=== PATIENT | female | born 1990 | race African-American/Black ===

== ENCOUNTER 2017-02-25 18:39 | Inpatient (IN) | payer OTHER ==
[~2017-02-25] VITALS: Ht 149.9 cm; Wt 45.3 kg
[2017-02-25] MEDS ORDERED: POTASSIUM PO (19:01)
[2017-02-25] MEDS ORDERED: ONDA4 PO (19:02)
[2017-02-25] MEDS ORDERED: KETOROLAC TROMETHAMINE 30 MG/ML VIAL IVP ONE (19:15)
[2017-02-25] MEDS ORDERED: ONDANSETRON HCL 4 MG/2 ML VIAL IVP ONE ×2 (19:15→21:15)
[2017-02-25] MEDS ORDERED: KETOROLAC TROMETHAMINE 15 MG/ML VIAL IV ONE (19:15)
[2017-02-25] MEDS ORDERED: SODIUM CHLORIDE 0.9% 1,000 ML IV ONE ×2 (19:15→23:00)
[2017-02-25] MEDS ORDERED: HYDROmorphone 2 MG/ML SYRINGE IVP ONE ×2 (19:15→21:15)
[2017-02-25 19:46] LABS: BASOPHILS % (AUTO) 0.4 % (0.0-2.0); EOSINOPHILS % (AUTO) 0.5 % (1.0-6.0); HEMATOCRIT 33.3 % (36-46); HEMOGLOBIN 11.4 g/dL (12.0-16.0); LYMPHOCYTES # (AUTO) 2.7 K/uL (1.0-4.8); LYMPHOCYTES % (AUTO) 46.1 % (22.0-44.0); MEAN CORPUSCULAR HEMOGLOBIN 33.5 pg (26.0-34.0); MEAN CORPUSCULAR HGB CONC 34.1 G/dL (31.0-37.0); MEAN CORPUSCULAR VOLUME 98 fL (80-100); MONOCYTES # (AUTO) 0.5 K/uL (0.1-1.0); NEUTROPHILS # (AUTO) 2.6 K/uL (1.8-7.7); PLATELET COUNT (AUTO) 288 K/uL (150-450); RED BLOOD CELL COUNT(AUTO) 3.39 MIL/uL (4.00-5.20); RED CELL DISTRIBUTION WIDTH 15.7 % (11.5-14.5); WHITE BLOOD COUNT (AUTO) 5.9 K/uL (4.5-11.0)
[2017-02-25 20:11] LABS: ALANINE AMINOTRANSFERASE 37 U/L (12-78); ALBUMIN 2.8 g/dL (3.4-5.0); ANION GAP 8 mmol/L (8-16); ASPARTATE AMINOTRANSFERASE 36 U/L (15-37); BILIRUBIN,TOTAL 0.6 mg/dL (0.1-1.0); CALCIUM, TOTAL 8.7 mg/dL (8.8-10.5); CARBON DIOXIDE 30 mmol/L (22-29); CHLORIDE 98 mmol/L (98-107); CREATININE 0.55 mg/dL (0.60-1.30); GLOMERULAR FILTR. RATE CALC > 60 mL/min (>60); SODIUM SERUM 136 mmol/L (136-145); TOTAL PROTEIN, SERUM 5.8 g/dL (6.4-8.2); UREA NITROGEN, BLOOD 10 mg/dL (7-18)
[2017-02-25 20:18] LABS: POTASSIUM 2.5 mmol/L (3.5-5.1)
[2017-02-25] MEDS ORDERED: POTASSIUM CHLORIDE 10% 40 MEQ/30 ML LIQUID UDCUP PO ONE (21:00)
[2017-02-25] MEDS ORDERED: POTASSIUM CHL 10 MEQ/WATER 50 ML IV ONE (21:15)
[2017-02-25] MEDS ORDERED: SODIUM CHLORIDE 0.9% 500 ML IV ONE (21:17)
[2017-02-25] MEDS ORDERED: MAGNESIUM HYDROXIDE SUSPENSION 30 ML UDCUP PO PRN (23:00)
[2017-02-25] MEDS ORDERED: ONDANSETRON HCL 4 MG/2 ML VIAL IVP PRN (23:00)
[2017-02-25] MEDS ORDERED: ACETAMINOPHEN 325 MG TABLET PO PRN (23:00)
[2017-02-25] MEDS ORDERED: DiphenhydrAMINE HCL 25 MG CAPSULE PO PRN (23:00)
[2017-02-25] MEDS ORDERED: POTASSIUM CHLORIDE 20 MEQ ER TABLET PO PRN (23:00)
[2017-02-25] MEDS: POTASSIUM CHL 10 MEQ/WATER 50 ML IV PRN (23:05)
[2017-02-25 23:25] VITALS: BP 132/97
[2017-02-25] MEDS: MORPHINE SULFATE 2 MG/ML SYRINGE IVP PRN (23:37)
[2017-02-26] MEDS: POTASSIUM CHL 10 MEQ/WATER 50 ML IV PRN ×5 (00:57→12:47)
[2017-02-26 04:07] VITALS: BP 150/100
[2017-02-26] MEDS: OxyCODONE HCL/ACETAMINOPHEN 5-325 MG TABLET PO PRN (04:12)
[2017-02-26 06:17] LABS: APPEARANCE,URINE TURBID (CLEAR); GLUCOSE, URINE (UA) NEGATIVE (NEGATIVE); KETONES,URINE 15 mg/dL (NEGATIVE); LEUKOCYTE ESTERASE ,URINE SMALL (NEGATIVE); OCCULT BLOOD,URINE NEGATIVE (NEGATIVE); PH,URINE 6.5 (5.0-8.0); PROTEIN,URINE POS 1+ (NEGATIVE)
[2017-02-26 06:28] LABS: SQUAMOUS EPITHELIAL CELL,UR Moderate /LPF (None Seen)
[2017-02-26 07:34] VITALS: BP 129/79
[2017-02-26] MEDS: DOCUSATE SODIUM 100 MG CAPSULE PO SCH ×2 (07:56→19:39)
[2017-02-26] MEDS: PANTOPRAZOLE SODIUM 40 MG/VIAL IVP SCH (07:56)
[2017-02-26] MEDS: MORPHINE SULFATE 2 MG/ML SYRINGE IVP PRN ×2 (11:59→19:40)
[2017-02-26 13:10] VITALS: BP 121/85
[2017-02-26] MEDS ORDERED: DEXTROSE 5%-0.45% SODIUM CHL 1,000 ML IV ONE (13:30)
[2017-02-26 19:27] VITALS: BP 126/87
[2017-02-26 19:35] LABS: APPEARANCE,URINE TURBID (CLEAR); GLUCOSE, URINE (UA) NEGATIVE (NEGATIVE); KETONES,URINE TRACE mg/dL (NEGATIVE); LEUKOCYTE ESTERASE ,URINE TRACE (NEGATIVE); OCCULT BLOOD,URINE NEGATIVE (NEGATIVE); PH,URINE 6.5 (5.0-8.0); PROTEIN,URINE POS 1+ (NEGATIVE)
[2017-02-26 19:46] LABS: ADD UA MICROSCOPIC YES
[2017-02-26 19:47] LABS: AMORPHOUS SEDIMENT,UR Many /LPF (None Seen); RBC,URINE None Seen /HPF (0-2); WBC,URINE 0-2 /HPF (0-5)
[2017-02-26 23:52] VITALS: BP 151/107
[2017-02-27] MEDS: MORPHINE SULFATE 2 MG/ML SYRINGE IVP PRN ×3 (01:39→20:04)
[2017-02-27 04:22] VITALS: BP 129/88
[2017-02-27] MEDS: OxyCODONE HCL/ACETAMINOPHEN 5-325 MG TABLET PO PRN (04:32)
[2017-02-27 07:10] VITALS: BP 124/87
[2017-02-27] MEDS: PANTOPRAZOLE SODIUM 40 MG/VIAL IVP SCH (08:13)
[2017-02-27] MEDS: DOCUSATE SODIUM 100 MG CAPSULE PO SCH ×2 (08:13→19:59)
[2017-02-27] MEDS ORDERED: SODIUM CHLORIDE 0.9% 1,000 ML IV ONE ×2 (10:29→11:15)
[2017-02-27 15:20] VITALS: BP 131/93
[2017-02-27 19:22] VITALS: BP 111/76
[2017-02-28 00:38] VITALS: BP 121/78
[2017-02-28] MEDS: MORPHINE SULFATE 2 MG/ML SYRINGE IVP PRN ×2 (03:16→10:38)
[2017-02-28] MEDS ORDERED: ALBUTEROL SULFATE HFA 90 MCG/PUFF 8 GM INHALER IH ONE (05:20)
[2017-02-28] MEDS ORDERED: PROPOFOL 1% 20 ML VIAL IVP ONE (05:20)
[2017-02-28] MEDS ORDERED: LIDOCAINE HCL/PF 2% 5 ML VIAL IM ONE (05:20)
[2017-02-28 05:53] VITALS: BP 135/98
[2017-02-28 07:50] VITALS: BP 140/101
[2017-02-28] MEDS: DOCUSATE SODIUM 100 MG CAPSULE PO SCH (10:38)
[2017-02-28] MEDS: PANTOPRAZOLE SODIUM 40 MG/VIAL IVP SCH (10:39)
[2017-02-28 11:38] VITALS: BP 127/92
[2017-02-28] MEDS ORDERED: OMEP10SU2 PO ×2 (12:16→13:49)
[2017-02-28 12:37] LABS: BASOPHILS % (AUTO) 0.2 % (0.0-2.0); EOSINOPHILS % (AUTO) 0.4 % (1.0-6.0); HEMATOCRIT 32.9 % (36-46); HEMOGLOBIN 11.2 g/dL (12.0-16.0); LYMPHOCYTES # (AUTO) 2.4 K/uL (1.0-4.8); LYMPHOCYTES % (AUTO) 17.4 % (22.0-44.0); MEAN CORPUSCULAR HEMOGLOBIN 33.3 pg (26.0-34.0); MEAN CORPUSCULAR VOLUME 98 fL (80-100); MONOCYTES # (AUTO) 0.5 K/uL (0.1-1.0); MONOCYTES % (AUTO) 3.2 % (2.0-9.0); NEUTROPHILS # (AUTO) 11.1 K/uL (1.8-7.7); NEUTROPHILS % (AUTO) 78.8 % (40.0-70.0); PLATELET COUNT (AUTO) 217 K/uL (150-450); RED BLOOD CELL COUNT(AUTO) 3.37 MIL/uL (4.00-5.20); WHITE BLOOD COUNT (AUTO) 14.1 K/uL (4.5-11.0)
[2017-02-28 13:02] LABS: ANION GAP 14 mmol/L (8-16); CALCIUM, TOTAL 8.4 mg/dL (8.8-10.5); CARBON DIOXIDE 22 mmol/L (22-29); CHLORIDE 102 mmol/L (98-107); CREATININE 0.47 mg/dL (0.60-1.30); GLOMERULAR FILTR. RATE CALC > 60 mL/min (>60); POTASSIUM 3.6 mmol/L (3.5-5.1); SODIUM SERUM 138 mmol/L (136-145); UREA NITROGEN, BLOOD 4 mg/dL (7-18)
[2017-02-28] MEDS ORDERED: CIP250 PO (14:14)
[2017-02-28] MEDS ORDERED: CIPROFLOXACIN HCL 250 MG TABLET PO ONE (14:45)
[2017-02-28 15:00] VITALS: BP 138/108
== END 2017-02-28 15:30 | disposition home or self-care (01) | DRG 241 ==
LOC: EMS 18:41 → 6N 22:38
PROVIDERS: ADMIT Internal Medicine; ATTEND Internal Medicine
PROC: 0DB68ZX Excision of Stomach, Via Natural or Artificial Opening Endoscopic, Diagnostic (ICD-10-PCS; 2017-02-27)
PROC: 0DB58ZX Excision of Esophagus, Via Natural or Artificial Opening Endoscopic, Diagnostic (ICD-10-PCS; 2017-02-27)
PROC: 0DB98ZX Excision of Duodenum, Via Natural or Artificial Opening Endoscopic, Diagnostic (ICD-10-PCS; principal; 2017-02-27 12:15)
DX: K29.70 Gastritis, unspecified, without bleeding (principal); K76.0 Fatty (change of) liver, not elsewhere classified; F11.20 Opioid dependence, uncomplicated; F12.90 Cannabis use, unspecified, uncomplicated; K20.9 Esophagitis, unspecified; E87.6 Hypokalemia; F99 Mental disorder, not otherwise specified; G89.29 Other chronic pain; Z76.5 Malingerer [conscious simulation]; Z79.899 Other long term (current) drug therapy
CPT/HCPCS: 76700; 80307; 82533; 84132; 87081; 87086; 88305; 88312; 96361; 96374; 96375; 96376; 99285; C9113; G0480; J1170; J1885; J2270; J2405; J2704; J3480; J3490; J3535; J7030; J7040